=== PATIENT | male | born 1995 | race Caucasian/White ===

== ENCOUNTER 2024-03-11 15:20 | Inpatient (IN) ==
--- NOTE | 2024-03-11 15:49 | Emergency Department Note ---
Impression & Plan Acute hypoxic respiratory failure, Strep pharyngitis, Enterovirus infection, Hypokalemia, Metabolic acidosis ED Provider Note NAME: JODI STACY AGE: 28 SEX: M : 1995 ARRIVES VIA: Ambulance INFORMANT: Patient, ED PROVIDER(S): Earle Yoon DO CHIEF COMPLAINT: Shortness of breath HPI: Patient is a 27-year-old male who presents ER for upper respiratory symptoms that have been present for the past week. He admits to cough, runny nose and a sore throat. Denies any recorded fevers. He was seen here earlier and was positive for strep and rhinovirus. He presents back via EMS for shortness of breath. Denies any belly pain, nausea, vomiting, or diarrhea. No dysuria, urgency, or frequency. He feels short of breath with any exertion. He was placed on 4 L nasal cannula due to a pulse ox of 86% per EMS. ADDITIONAL HISTORY OBTAINED: Additional history obtained from EMS as described above Chronic Medical/Social Conditions Affecting Care: Per HPI PAST MEDICAL HISTORY:See Below PAST SURGICAL HISTORY:See Below FAMILY HISTORY:See Below SOCIAL HISTORY:See Below HOME MEDICATIONS:See Below ALLERGIES:See Below VITALS:See Below PHYSICAL EXAMINATION: GENERAL: Sitting up in bed, alert, well appearing, well nourished, no distress, non-toxic, on nasal cannula with a persistent cough EYE EXAM: normal conjunctiva. PERRL and EOM's grossly intact. OROPHARYNX: no exudate, no erythema, lips, buccal mucosa, and tongue normal and mucous membranes are moist NECK: supple, no nuchal rigidity, no adenopathy, non-tender LUNGS: Faint wheezing bilaterally. Normal chest wall mechanics HEART: no murmurs, S1 normal and S2 normal ABDOMEN: abdomen soft, non-tender, normo-active bowel sounds, no masses, no rebound or guarding. UPPER EXTREMITIES: upper extremities are grossly normal. LOWER EXTREMITIES: No pitting edema. Calves are equal bilaterally NEURO EXAM: Normal sensorium, cranial nerves II-XII grossly intact, normal speech, no gross weakness of arms, no gross weakness of legs. No drift. Finger to nose intact. Gross sensation intact. MEDICAL DECISION MAKING: Patient is a 28-year-old male who presents ER for the above-stated complaint. He was seen here earlier today and diagnosed with rhinovirus/enterovirus as well as strep. Upon arrival he was brought back in by EMS for worsening shortness of breath. Labs show leukocytosis of 12,000. No significant anemia. He is found to be hypoxic for EMS at 87%. Here he was 87 to 8088% on room air. ABG with a pH of 7.29. Hypokalemia at 3.3. LFTs bilirubin and lipase was unremarkable. Chest x-ray was unremarkable. CT of the chest showed bronchial wall thickening and lymph nodes. He was given neb treatments as well as steroids as he had some faint wheezing. He was updated bedside discussed with case with the hospitalist for further evaluation management treatment. Consults/Care Managements Discussions: Per [facility] Triage Nursing notes reviewed. [Limited review of prior medical records performed] Vital Signs: reviewed and remarkable for 87% on room air/hypoxic Differential diagnosis: Differential diagnoses includes but is not limited to pneumonia, bronchitis, COPD/Asthma exacerbation, pneumothorax, pulmonary embolism, congestive heart failure, acute coronary syndrome ER treatment provided: See below Diagnostics interpreted by me include EKG and cardiac monitoring as listed below: -Cardiac Monitoring: An order was placed for continuous cardiac monitoring. The monitor shows a rate of 101 with sinus rhythm. -ECG: Sinus rhythm rate of 92 Normal axis T wave inversion in the inferior leads QTc 450 -Laboratory studies:Interpreted by me as stated above in MDM and shown below. Imaging studies: Xrays: As interpreted by me:none CTs show: CT of the chest per my preliminary interpretation showed no obvious focal pneumonia CT a of the chest per radiology was negative Procedures:none Critical Care: I have personally spent 35 minutes of critical care time in the direct management of this patient. This includes bedside care, interpretation of diagnostic studies, and testing, discussion with consultants, patient, and family members, and other required patient management activities. This 35 minutes is in excess of all separately billable procedures. Past Med/Surg History Problem List (Updated 03/11/24 @ 21:10 by Earle Yoon DO) Metabolic acidosis (Acute) Esophagitis Hypokalemia (Acute) Enterovirus infection (Acute) Acute hypoxic respiratory failure (Acute) URI (upper respiratory infection) (Acute) Strep pharyngitis (Acute) Dermatitis Encounter for vasectomy assessment Medical History Diarrhea Family History Mother COPD (chronic obstructive pulmonary disease) Diabetes Hypertension Social History Smoking Status: Never smoker Preferred Language: Welsh Feels Safe at Home: Yes Allergies Allergies Allergy/AdvReac Type Severity Reaction Status Date / Time No Known Allergies Allergy Verified 03/11/24 16:25 Home Meds Previous Rx's Medication Instructions Recorded amoxicillin 875 mg-potassium 1 tab PO BID 10 days #20 tabs 03/11/24 clavulanate 125 mg tablet benzonatate 100 mg capsule 100 mg PO TID PRN cough #30 caps 03/11/24 Results & Data (ED) Vital Signs Vital Signs - 24 hr 03/11/24 15:32 03/11/24 15:48 03/11/24 15:55 Temperature 36.7 C Temperature Source Temporal Artery Scan Pulse Rate 85 99 H Pulse Rate [Apical] Pulse Rhythm Regular Pulse Rhythm [Apical] Pulse Strength [Apical] Respiratory Rate 18 Respiratory Effort / Characteristics Non-Labored Spontaneous Respiratory Depth Normal Respiratory Pattern Blood Pressure 131/79 Blood Pressure [Right Arm] Blood Pressure Mean 96 Blood Pressure Mean [Right Arm] Blood Pressure Position Sitting Pulse Oximetry 96 95 Oxygen Delivery Method Nasal Cannula Nasal Cannula Oxygen Flow Rate 4 5 Sepsis Recent Fever Within 48 Hours No Sepsis New/Unexplained Change in Mental Status No Sepsis Action Taken by Nursing No Action Required Oxygen Flow Rate - Titration Pulse Oximetry Post Tiitration 03/11/24 16:00 03/11/24 16:10 03/11/24 18:48 Temperature Temperature Source Pulse Rate Pulse Rate [Apical] 89 98 H Pulse Rhythm Pulse Rhythm [Apical] Regular Pulse Strength [Apical] Normal Normal Respiratory Rate 19 19 Respiratory Effort / Characteristics SOB on Exertion Non-Labored Spontaneous Respiratory Depth Normal Normal Respiratory Pattern Regular Regular Blood Pressure Blood Pressure [Right Arm] 145/80 H 142/92 H Blood Pressure Mean Blood Pressure Mean [Right Arm] 101 108 Blood Pressure Position Pulse Oximetry 88 L 95 95 Oxygen Delivery Method Room Air Nasal Cannula Nasal Cannula Oxygen Flow Rate 4 3 Sepsis Recent Fever Within 48 Hours Sepsis New/Unexplained Change in Mental Status Sepsis Action Taken by Nursing Oxygen Flow Rate - Titration 4 Pulse Oximetry Post Tiitration 95 03/11/24 19:39 03/11/24 20:45 Temperature Temperature Source Pulse Rate 107 H Pulse Rate [Apical] 105 H Pulse Rhythm Pulse Rhythm [Apical] Pulse Strength [Apical] Respiratory Rate 19 Respiratory Effort / Characteristics SOB on Exertion Respiratory Depth Normal Respiratory Pattern Regular Blood Pressure Blood Pressure [Right Arm] 118/73 Blood Pressure Mean Blood Pressure Mean [Right Arm] 88 Blood Pressure Position Pulse Oximetry 94 Oxygen Delivery Method Nasal Cannula Oxygen Flow Rate 3 Sepsis Recent Fever Within 48 Hours Sepsis New/Unexplained Change in Mental Status Sepsis Action Taken by Nursing Oxygen Flow Rate - Titration Pulse Oximetry Post Tiitration Laboratory Data 03/11/24 15:51 03/11/24 15:51 Lab Results 03/11/24 03/11/24 Range/Units 15:51 17:25 WBC 12.00 H (4.8-10.8) K/ul RBC 5.22 (4.70-6.10) M/uL Hgb 14.6 (14.0-18.0) g/dl Hct 41.6 L (42.0-52.0) % MCV 79.7 L (80.0-100.0) fL MCH 28.0 (25.0-34.0) pg MCHC 35.1 (32.0-36.0) g/dL RDW Std Deviation 35.7 L (36.4-46.3) fL RDW Coeff of Nicko 12.5 (11.5-14.5) % Plt Count 224 (130-400) K/uL MPV 9.6 (9.4-12.4) fL Immature Gran % (Auto) 0.8 % Neut % (Auto) 64.7 % Lymph % (Auto) 13.4 % [place] % (Auto) 5.7 % Eos % (Auto) 14.5 % Baso % (Auto) 0.9 % Neut # (Auto) 7.77 H (1.40-6.50) K/uL Lymph # (Auto) 1.61 (1.20-3.40) K/uL [place] # (Auto) 0.68 H (0.11-0.59) K/uL Eos # (Auto) 1.74 H (0.00-0.50) K/uL Baso # (Auto) 0.11 (0.00-0.20) K/uL Immature Gran # (Auto) 0.09 (0.01-0.20) K/uL VBG pH 7.29 L (7.36-7.41) VBG pCO2 49 (38-50) mmHg VBG pO2 31 mmHg VBG HCO3 24 mmol/L VBG O2 Saturation < 60.0 % VBG Base Excess -3.4 mEq/L Sodium 138 (136-145) mmol/L Potassium 3.3 L (3.5-5.1) mmol/L Chloride 106 (98-107) mmol/L Carbon Dioxide 27 (21-32) mmol/L Anion Gap 5 (3-11) BUN 16 (6-23) mg/dl Creatinine 1.01 (0.6-1.4) mg/dl Est Cr Clr Drug Dosing 140.7 ml/min Est GFR ( Amer) 116.0 ml/min Est GFR (Non-Af Amer) 100.0 ml/min BUN/Creatinine Ratio 15.8 (10-20) Glucose 126 H (70-99(Fasting)) mg/dl Calcium 8.8 (8.6-10.3) mg/dl Total Bilirubin 0.3 (0.2-1.0) mg/dl AST 14 (13-39) U/L ALT 16 (7-52) U/L Alkaline Phosphatase 76 (34-104) U/L Troponin I High Sens 3.0 (0-20) pg/ml Total Protein 7.1 (6.0-8.3) gm/dl Albumin 4.2 (3.4-5.0) gm/dl Globulin 2.9 (2.5-4.0) gm/dl Albumin/Globulin Ratio 1.4 (0.9-2) Lipase 11 (11-82) U/L Administered Medications Discontinued Medications Albuterol (Albuterol 0.083% Nebu Soln 3 Ml Vial) 2.5 mg NEB NOW STA; Protocol Stop: 03/11/24 16:22 Last Admin: 03/11/24 16:27 Dose: 2.5 mg Documented By: GGG Albuterol (Albuterol 0.083% Nebu Soln 3 Ml Vial) 2.5 mg NEB NOW STA; Protocol Stop: 03/11/24 17:03 Last Admin: 03/11/24 17:05 Dose: 2.5 mg Documented By: ALEXYS Sodium Chloride (Nss) 1,000 mls @ 999 mls/hr IV .Q1H1M [place] Stop: 03/11/24 17:45 Last Infusion: 03/11/24 18:45 Dose: Infused Documented By: Admin: 03/11/24 16:50 Dose: 999 mls/hr Documented By: Infusion: 03/11/24 16:50 Dose: Infused Documented By: Admin: 03/11/24 16:13 Dose: 999 mls/hr Documented By: ALEXYS Ioversol (Optiray 320 125ml) 118 ml IV ONCE ONE Stop: 03/11/24 16:03 Last Admin: 03/11/24 16:02 Dose: 118 ml Documented By: FRANCO Methylprednisolone (Methylprednisolone 125 Mg/2 Ml Vial) 40 mg IV NOW STA Stop: 03/11/24 17:03 Last Admin: 03/11/24 17:05 Dose: 40 mg Documented By: ALEXYS Potassium Chloride (Potassium Chloride Crtab 20 Meq Tabcr) 20 meq PO NOW STA Stop: 03/11/24 19:22 Last Admin: 03/11/24 19:27 Dose: 20 meq Documented By: ALEXYS Imaging Data Radiologist's Impression: Chest CTA 03/11/24 15:41 CT ANGIOGRAPHY OF THE CHEST, PULMONARY EMBOLUS PROTOCOL CLINICAL HISTORY: Shortness of breath and cough. COMPARISON STUDY: Chest radiograph performed earlier today. TECHNIQUE: Following IV administration of 118 mL of Optiray, helical axial images of the chest were obtained utilizing the pulmonary embolus protocol. Maximal intensity projections and sagittal and coronal reformats were viewed on an independent 3D workstation. IV contrast was administered without complication. Automated exposure control was utilized for the study. A dose lowering technique was utilized adhering to the principles of ALARA. CT DOSE: 846.76 mGy.cm FINDINGS: No pulmonary emboli are identified. There is no thoracic aortic dissection. The size of the heart is normal. There is no pericardial effusion. There are several mildly enlarged mediastinal and bilateral hilar lymph nodes. Index right hilar node on image 107 of 270 measures 1.6 x 1.2 cm. No pneumothorax or pleural effusion is present. No consolidation is identified. Mild distal esophageal wall thickening is noted. There is diffuse bronchial wall thickening with scattered secretions within the airways. Bronchial wall thickening is greatest within the lower lobes. No central obstructing mass is identified. There are no acute fractures within the bony structures. Visualized portions of the upper abdomen are unremarkable. IMPRESSION: 1. No pulmonary emboli identified. 2. Diffuse bronchial wall thickening with scattered airway secretions. The findings suggest an infectious process, likely viral. No consolidation. 3. Mild distal esophageal wall thickening. This may be due to underdistention however esophagitis could appear similar. 4. Mildly enlarged mediastinal and bilateral hilar lymph nodes which are likely reactive. ACT 112: Negative or not required by law. Electronically signed by: Malcolm Oliveros M.D. 03/11/2024 4:20 PM Discharge Plan Visit Data Chief Complaint: Shortness of Breath/Dyspnea Stated Complaint: SOB ED Provider: Earle Yoon Discharge Problem: Acute hypoxic respiratory failure, Strep pharyngitis, Enterovirus infection, Hypokalemia, Metabolic acidosis Patient Disposition: Admitted As Inpatient Discharge Instructions Interventions: ED Discharge Assessment Last Done: 03/11/24 20:44 Forms Stand Alone Forms: [facility] Prescriptions Prescriptions: No Action benzonatate 100 mg capsule 100 mg PO TID PRN (Reason: cough) Qty: 30 0RF amoxicillin-pot clavulanate 875-125 mg tablet 1 tab PO BID 10 Days Qty: 20 0RF Referrals Referrals: Shaw Bernard [Primary Care Provider] -
[2024-03-11] MEDS: OPTIRAY 320 125ml IV ONE (16:02)
[2024-03-11] MEDS: SODIUM CHLORIDE 0.9% 1,000 ML IV SCH (16:13)
[2024-03-11 16:19] LABS: Basophils # (auto) 0.11 K/uL (0.00-0.20); Basophils % (auto) 0.9 %; Eosinophils # (auto) 1.74 K/uL (0.00-0.50); Eosinophils % (auto) 14.5 %; Hematocrit (blood only) 41.6 % (42.0-52.0); Hemoglobin 14.6 g/dl (14.0-18.0); Immature Granulocytes # (auto) 0.09 K/uL (0.01-0.20); Immature Granulocytes % (auto) 0.8 %; Lymphocytes # (auto) 1.61 K/uL (1.20-3.40); Lymphocytes % (auto) 13.4 %; Mean Corpuscular Hgb Conc 35.1 g/dL (32.0-36.0); Mean Corpuscular Volume 79.7 fL (80.0-100.0); Mean Platelet Volume 9.6 fL (9.4-12.4); Monocytes # (auto) 0.68 K/uL (0.11-0.59); Monocytes % (auto) 5.7 %; Neutrophils # (auto) 7.77 K/uL (1.40-6.50); Neutrophils % (auto) 64.7 %; Platelet Count 224 K/uL (130-400); RDW Coefficient of Variation 12.5 % (11.5-14.5); RDW Standard Deviation 35.7 fL (36.4-46.3); Red Blood Count 5.22 M/uL (4.70-6.10)
--- NOTE | 2024-03-11 16:22 | CT Scan Report ---
CT ANGIOGRAPHY OF THE CHEST, PULMONARY EMBOLUS PROTOCOL CLINICAL HISTORY: Shortness of breath and cough. COMPARISON STUDY: Chest radiograph performed earlier today. TECHNIQUE: Following IV administration of 118 mL of Optiray, helical axial images of the chest were o btained utilizing the pulmonary embolus protocol. Maximal intensity projections and sagittal and cor onal reformats were viewed on an independent 3D workstation. IV contrast was administered without co mplication. Automated exposure control was utilized for the study. A dose lowering technique was ut ilized adhering to the principles of ALARA. CT DOSE: 846.76 mGy.cm FINDINGS: No pulmonary emboli are identified. There is no thoracic aortic dissection. The size of th e heart is normal. There is no pericardial effusion. There are several mildly enlarged mediastinal an d bilateral hilar lymph nodes. Index right hilar node on image 107 of 270 measures 1.6 x 1.2 cm. No p neumothorax or pleural effusion is present. No consolidation is identified. Mild distal esophageal wa ll thickening is noted. There is diffuse bronchial wall thickening with scattered secretions within t he airways. Bronchial wall thickening is greatest within the lower lobes. No central obstructing mass is identified. There are no acute fractures within the bony structures. Visualized portions of the u pper abdomen are unremarkable. IMPRESSION: 1. No pulmonary emboli identified. 2. Diffuse bronchial wall thickening with scattered airway secretions. The findings suggest an infect ious process, likely viral. No consolidation. 3. Mild distal esophageal wall thickening. This may be due to underdistention however esophagitis cou ld appear similar. 4. Mildly enlarged mediastinal and bilateral hilar lymph nodes which are likely reactive. ACT 112: Negative or not required by law. Electronically signed by: Malcolm Oliveros M.D. 03/11/2024 4:20 PM
[2024-03-11] MEDS: ALBUTEROL 0.083% NEBU SOLN 3 ML VIAL NEB STA ×2 (16:27→17:05)
[2024-03-11 16:31] LABS: Albumin Globulin Ratio 1.4 (0.9-2); Albumin Level 4.2 gm/dl (3.4-5.0); BUN Creatinine Ratio 15.8 (10-20); Bilirubin,Total 0.3 mg/dl (0.2-1.0); Calcium 8.8 mg/dl (8.6-10.3); Creatinine Clr Calc Pharmacy 140.7 ml/min; Globulin 2.9 gm/dl (2.5-4.0); Potassium 3.3 mmol/L (3.5-5.1); Total Protein 7.1 gm/dl (6.0-8.3)
[2024-03-11] MEDS: methylPREDNISolone 125 MG/2 ML VIAL IV STA (17:05)
[2024-03-11 17:31] LABS: Base Excess VBG -3.4 mEq/L; HCO3 VBG 24 mmol/L; Oxygen Saturation VBG < 60.0 %; PCO2 VBG 49 mmHg (38-50); PO2 VBG 31 mmHg; pH VBG 7.29 (7.36-7.41)
--- NOTE | 2024-03-11 17:41 | Electrocardiogram Report ---
Test Reason : Blood Pressure : / mmHG Vent. Rate : 092 BPM Atrial Rate : 092 BPM P-R Int : 162 ms QRS Dur : 088 ms QT Int : 364 ms P-R-T Axes : 006 065 004 degrees QTc Int : 450 ms Normal sinus rhythm Nonspecific T wave abnormality Inferior leads Nonspecific T wave abnormality Anterior leads Abnormal ECG No previous ECGs available Confirmed by Bernabe Patel ([id number]) on 03/11/2024 5:40:54 PM Referred By: Confirmed By:Bernabe Patel
--- NOTE | 2024-03-11 19:26 | History & Physical Report ---
Date of Service March 11, 2024 Assessment & Plan (1) Acute hypoxic respiratory failure: (2) Strep pharyngitis: (3) Enterovirus infection: (4) Hypokalemia: (5) Esophagitis: Plan Pt is a 28yoM with PMHx significant for past tobacco use admitted with acute hypoxic respiratory failure. 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 Biofire positive for Entero/Rhinovirus infection Pt also positive for strep VBG noting acidosis but otherwise unremarkable Chest CTA suggestive of an infectious/bronchitis process but no noted PE Continue with IV Unasyn (will treat strep infection as well) Received dose of IV Solumedrol 40mg in the ED, continue daily Continue with scheduled duonebs Scheduled mucinex, Breo, Incruse inhalers PRN Hycodan Oxygen supplementation, wean as tolerated pulmonology consulted, appreciate recs Continue to monitor Hypokalemia K of 3.3 Replete as needed Esophagitis Suggested on CTA chest Started on daily ppi PCP followup Diet: Regular DVT prophylaxis: SCDs, ambulation as tolerated Dispo: Med/Surg with tele History of Present Illness Chief Complaint: Cough Primary Care Provider: Shaw Bernard Pt is a 28yoM with PMHx significant for past tobacco use admitted with acute hypoxic respiratory failure. States that he has been coughing for the past week, coughing fits that keep him up at night. No noted fevers. has been urging him to take OTC meds to help. Notes he took theraflu probably once during this time. Coughing progressed and came in today to be evaluated. Was evaluated in the ED where it was noted that he had a strep and viral infection and discharged home. However, he notes he went home, took the prescribed meds and laid down. States at that point felt like something was on his chest and he had significant difficulty breathing. EMS was called and it was noted that he was hypoxic in the 80s. He was placed on oxygen requiring 5L. He states that he smoked tobacco for about 10 years, 1ppd before quitting about a year ago. 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 Denies vaping Hx or smoking anything other than tobacco. Allergies Allergy/AdvReac Type Severity Reaction Status Date / Time No Known Allergies Allergy Verified 03/11/24 16:25 Home Medications Medication Instructions Recorded Confirmed Type amoxicillin 875 mg-potassium 1 tab PO BID 10 days #20 tabs 03/11/24 03/11/24 Rx clavulanate 125 mg tablet benzonatate 100 mg capsule 100 mg PO TID PRN cough #30 caps 03/11/24 03/11/24 Rx Past Med/Surg History Problem List (Updated 03/11/24 @ 20:01 by An Hill MD) Esophagitis Hypokalemia Enterovirus infection Acute hypoxic respiratory failure URI (upper respiratory infection) (Acute) Strep pharyngitis (Acute) Dermatitis Encounter for vasectomy assessment Medical History Diarrhea Family History Mother COPD (chronic obstructive pulmonary disease) Diabetes Hypertension Social History Smoking Status: Never smoker Preferred Language: Zimbabwean Feels Safe at Home: Yes Review of Systems Review of Systems: All systems reviewed & are unremarkable except as noted in Subjective Physical Exam Physical Exam: General: Alert, oriented. some mild distress Skin: No noted rashes or bruises Psych: Appropriate mood and affect Neuro: No gross deficits HEENT: NC/AT Chest: Nontender to palpation. CV: RRR Resp: Breath sounds with wheezing bilaterally Abdomen: Soft, nontender, nondistended Extremities: No edema in lower extremities bilaterally. Results & Data Results & Data Vital Signs (Past 12 Hours) Vital Signs Temp Pulse Pulse Resp BP BP Pulse Ox 03/11/24 16:10 89 19 145/80 H 95 03/11/24 16:00 88 L 03/11/24 15:55 95 03/11/24 15:48 99 H 03/11/24 15:32 36.7 C 85 18 131/79 96 O2 Del Method O2 Flow Rate 03/11/24 16:10 Nasal Cannula 4 03/11/24 16:00 Room Air 03/11/24 15:55 Nasal Cannula 5 03/11/24 15:48 03/11/24 15:32 Nasal Cannula 4 Diagnostic Findings Chest CTA 03/11/24 15:41 CT ANGIOGRAPHY OF THE CHEST, PULMONARY EMBOLUS PROTOCOL CLINICAL HISTORY: Shortness of breath and cough. COMPARISON STUDY: Chest radiograph performed earlier today. TECHNIQUE: Following IV administration of 118 mL of Optiray, helical axial images of the chest were obtained utilizing the pulmonary embolus protocol. Maximal intensity projections and sagittal and coronal reformats were viewed on an independent 3D workstation. IV contrast was administered without complication. Automated exposure control was utilized for the study. A dose lowering technique was utilized adhering to the principles of ALARA. CT DOSE: 846.76 mGy.cm FINDINGS: No pulmonary emboli are identified. There is no thoracic aortic dissection. The size of the heart is normal. There is no pericardial effusion. There are several mildly enlarged mediastinal and bilateral hilar lymph nodes. Index right hilar node on image 107 of 270 measures 1.6 x 1.2 cm. No pneumothorax or pleural effusion is present. No consolidation is identified. Mild distal esophageal wall thickening is noted. There is diffuse bronchial wall thickening with scattered secretions within the airways. Bronchial wall thickening is greatest within the lower lobes. No central obstructing mass is identified. There are no acute fractures within the bony structures. Visualized portions of the upper abdomen are unremarkable. IMPRESSION: 1. No pulmonary emboli identified. 2. Diffuse bronchial wall thickening with scattered airway secretions. The findings suggest an infectious process, likely viral. No consolidation. 3. Mild distal esophageal wall thickening. This may be due to underdistention however esophagitis could appear similar. 4. Mildly enlarged mediastinal and bilateral hilar lymph nodes which are likely reactive. ACT 112: Negative or not required by law. Electronically signed by: Malcolm Oliveros M.D. 03/11/2024 4:20 PM
[2024-03-11] MEDS: POTASSIUM CHLORIDE CRTAB 20 MEQ TABCR PO STA (19:27)
[2024-03-11] MEDS: HYDROcodone/HOMATROPINE SYRUP 5MG/1.5MG 5ML UDP PO PRN (22:30)
[2024-03-11] MEDS: AMPICILLIN/SULBACTAM SOD 3,000 MG in SODIUM CHLOR 0.9% MINI-B 100 ML IV SCH (22:31)
[2024-03-11] MEDS: PANTOprazole 40 MG TAB PO SCH (22:31)
[2024-03-11] MEDS: guaiFENesin 600 MG TABCR PO SCH (22:31)
[2024-03-11] MEDS: FLUTICASONE/VILANTEROL 200/25MCG 14 PUFFS/INHALER INH SCH (22:32)
[2024-03-11] MEDS: UMECLIDINIUM BROMIDE 62.5MCG/BLISTER 7 PUFFS/INHALER INH SCH (22:32)
[2024-03-11] MEDS: ALBUT/IPRATROP 3MG/0.5MG NEB 3 ML VIAL NEB PRN (22:41)
[2024-03-12] MEDS: BENZONATATE 100 MG CAPSULE PO PRN (03:22)
[2024-03-12] MEDS: ACETAMINOPHEN 325 MG TAB PO PRN (03:22)
[2024-03-12] MEDS: SODIUM CHLORIDE 0.9% 1,000 ML IV SCH (05:34)
[2024-03-12 07:43] LABS: Basophils # (auto) 0.07 K/uL (0.00-0.20); Basophils % (auto) 0.7 %; Eosinophils # (auto) 0.02 K/uL (0.00-0.50); Eosinophils % (auto) 0.2 %; Hematocrit (blood only) 40.4 % (42.0-52.0); Hemoglobin 14.3 g/dl (14.0-18.0); Lymphocytes # (auto) 0.46 K/uL (1.20-3.40); Lymphocytes % (auto) 4.6 %; Mean Corpuscular Hemoglobin 28.2 pg (25.0-34.0); Mean Corpuscular Hgb Conc 35.4 g/dL (32.0-36.0); Mean Corpuscular Volume 79.7 fL (80.0-100.0); Mean Platelet Volume 9.8 fL (9.4-12.4); Monocytes # (auto) 0.85 K/uL (0.11-0.59); Monocytes % (auto) 8.6 %; Neutrophils % (auto) 84.9 %; Platelet Count 228 K/uL (130-400); RDW Coefficient of Variation 12.9 % (11.5-14.5); RDW Standard Deviation 36.4 fL (36.4-46.3); Red Blood Count 5.07 M/uL (4.70-6.10)
[2024-03-12] MEDS: methylPREDNISolone 40 MG in SYRINGE 0 ML IV SCH (08:09)
[2024-03-12 08:12] LABS: Albumin Globulin Ratio 1.4 (0.9-2); Albumin Level 4.2 gm/dl (3.4-5.0); BUN Creatinine Ratio 12.2 (10-20); Bilirubin,Total 0.6 mg/dl (0.2-1.0); Calcium 8.9 mg/dl (8.6-10.3); Creatinine Clr Calc Pharmacy 153.1 ml/min; Est GFR (African American) 133.3 ml/min; Globulin 2.9 gm/dl (2.5-4.0); Magnesium 1.7 mg/dl (1.7-2.4); Phosphorus 4.7 mg/dl (2.5-4.9); Total Protein 7.1 gm/dl (6.0-8.3)
--- NOTE | 2024-03-12 10:43 | Pulmonary Consultation ---
Date of Consultation March 12, 2024 Assessment & Plan (1) Acute viral bronchiolitis: Patient with acute viral bronchiolitis likely related to enterovirus. Possible superimposed bacterial infection. Group A strep noted on respiratory viral panel. Unasyn discontinued. Will start ceftriaxone and azithromycin. Transition from IV methylprednisone to prednisone 40 mg daily. Discontinue Breo and Incruse. Will start nebulized budesonide and nebulized formoterol. Will also add hypertonic saline, flutter valve and incentive spirometry to promote mucociliary clearance. Procalcitonin sent. May benefit from outpatient PFTs. Noted significant peripheral eosinophilia on admission of 1740. Possible Th2 mediated asthma. Would benefit from RAST panel and IgE level. Orders placed. (2) Acute hypoxic respiratory failure: Hypoxemia improving. Patient currently off oxygen. (3) Current every day vaping: Patient notes he quit vaping about 7 days ago. He also has a 10-year history of tobacco abuse with cigarette smoking. Encouraged complete cessation of vaping and cigarette smoking and congratulated him on quitting vaping. (4) Peripheral eosinophilia: Possibly Th2 mediated asthma as noted above. Will need outpatient workup with PFTs. RAST and IgE panel ordered this admission. Nebulized budesonide and formoterol initiated. (5) Abnormal CT scan, chest: Patient with hilar and mediastinal adenopathy likely reactive to viral infection. Also bronchial wall thickening and secretions noted in the airways. Recommend repeat CT chest in 3-4 months to ensure resolution. Plan Thank you for the consult. Pulmonary to follow with you. History of Present Illness Reason for Consultation: Viral bronchiolitis Attending Physician: An Hill MD History of Present Illness 28-year-old male with a history of tobacco abuse and vaping. He notes he quit vaping about a week ago and he smoked tobacco for about 10 years. He was in the ER the day before and was discharged home as he did not want to be admitted. He came back soon after via EMS due to severe shortness of breath and has been placed on steroids and antibiotics. He has been having significant cough occasionally with some mild hemoptysis. He was on supplemental oxygen yesterday and has been weaned off. He notes that he has poor sleep due to severe cough and shortness of breath. His symptoms have very mildly improved, but overall he still feels unwell. He notes that he moved about 1 month ago, but his symptoms seem to predate even his move. He he has 1 dog at home. He is concerned about his employment and is asking about FMLA forms. He is currently on methylprednisone 40 mg daily, Breo and Incruse Ellipta. He is also on Unasyn. Chest CTA revealed diffuse bronchial wall thickening with scattered secretions. Distal esophageal thickening and mild mediastinal and bilateral hilar lymphadenopathy. Respiratory viral panel was positive for group A strep and enterovirus. Allergies Allergy/AdvReac Type Severity Reaction Status Date / Time No Known Allergies Allergy Verified 03/11/24 16:25 Home Medications Medication Instructions Recorded Confirmed Type amoxicillin 875 mg-potassium 1 tab PO BID 10 days #20 tabs 03/11/24 03/11/24 Rx clavulanate 125 mg tablet benzonatate 100 mg capsule 100 mg PO TID PRN cough #30 caps 03/11/24 03/11/24 Rx Patient History Medical History Diarrhea Family History Mother COPD (chronic obstructive pulmonary disease) Diabetes Hypertension Social History Smoking Status: Former smoker Tobacco Type: E-cigarettes / Vaping Smoking End Date: stopped vaping one week ago, stopped cigarettes 1 yr ago; Second Hand Exposure: No; Hx Alcohol Use: Yes Hx Substance Use: No Preferred Language: Bol[place]ian Communication Ability: Effective Medical Screener Required: No Beliefs That Will Affect Care: None Current Living Situation: Spouse and Family Feels Safe at Home: Yes Safety Concerns: Feels Safe At This Time Review of Systems Review of Systems: All systems reviewed & are unremarkable except as noted in HPI & below Physical Exam Physical Exam: Constitutional: Patient appears to be of their stated age. Patient appears disheveled. Coughing frequently Eyes: Pupils are equal round and reactive to light. Conjunctivae are normal. Anicteric sclera. Ears nose, mouth and throat: No perioral cyanosis. Neck: Trachea is midline. Visual inspection is normal. Respiratory: Bilateral wheezing and rhonchi. No tachypnea. No increased work of breathing. Cardiovascular: Regular rate and rhythm. No murmurs. No edema. Gastrointestinal: Normal bowel sounds, soft, nontender and nondistended. No hepatosplenomegaly noted. Musculoskeletal: No cyanosis. Patient is able to move all extremities. Strength is 5 out of 5 in the upper and lower extremities. Skin: No rashes, warm dry and intact. Neurologic: No obvious focal neurological deficits seen. Psychiatric: Alert and oriented x3 with a euthymic affect. Results & Data Results & Data Vital Signs (Past 12 Hours) Vital Signs Temp Pulse Pulse Pulse Resp BP Pulse Ox 03/12/24 08:08 94 03/12/24 08:00 03/12/24 07:43 37.2 C 100 H 16 136/72 94 03/12/24 07:00 99 H 03/12/24 05:05 03/12/24 04:51 37.7 C H 03/12/24 03:13 38.3 C H 118 H 22 127/69 97 O2 Del Method O2 Flow Rate 03/12/24 08:08 Room Air 03/12/24 08:00 Room Air 03/12/24 07:43 Nasal Cannula 2 03/12/24 07:00 03/12/24 05:05 Nasal Cannula 2 03/12/24 04:51 03/12/24 03:13 Nasal Cannula 3 PG Care Time/CCT Total # of Minutes Spent Total Time Spent with Patient: Total time spent is greater than 50% in coordination of care (as documented) at patient's floor/unit and/or counseling patient: Coding Level of Care Code 24956 IN/OBS CONSULT LVL 5,80M Diagnoses Acute viral bronchiolitis J21.8; B97.89 Acute hypoxic respiratory failure J96.01 Current every day vaping Z72.89 Peripheral eosinophilia D72.[address] scan, chest R93.89
[2024-03-12] MEDS: cefTRIAXone SODIUM 2,000 MG/50 ML BAG IV SCH (11:29)
[2024-03-12] MEDS: AZITHROMYCIN 500 MG in DEXTROSE 5% 250 ML IV STA (12:14)
--- NOTE | 2024-03-12 14:48 | Hospitalist Progress Note ---
Date of Service March 12, 2024 Assessment & Plan (1) Acute hypoxic respiratory failure: (2) Strep pharyngitis: (3) Enterovirus infection: (4) Hypokalemia: (5) Esophagitis: Plan Pt is a 28yoM with PMHx significant for past tobacco use admitted with acute hypoxic respiratory failure. 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 Biofire positive for Entero/Rhinovirus infection Pt also positive for strep VBG noting acidosis but otherwise unremarkable Chest CTA suggestive of an infectious/bronchitis process but no noted PE Initially treated with IV Unasyn (will treat strep infection as well) and IV solumedrol IV Solumedrol 40mg in the ED, scheduled duoneb, scheduled mucinex, Breo, Incruse inhalers PRN Hycodan for cough Oxygen supplementation, wean as tolerated pulmonology was consulted, appreciate recs -symptoms likely in setting of acute viral bronchiolitis likely related to enterovirus -Possible superimposed bacterial infection, positive for strep. -Unasyn switched to ceftriaxone and azithromycin. -IV methylprednisone switched to prednisone 40 mg daily. -Discontinue Breo and Incruse. -start nebulized budesonide and nebulized formoterol -hypertonic saline, flutter valve and incentive spirometry to promote mucociliary clearance -May benefit from outpatient PFTs, significant peripheral eosinophilia on admission of 1740, possible Th2 mediated asthma, RAST panel and IgE levels pending -Encourage complete cessation of vaping and cigarette smoking -Patient with hilar and mediastinal adenopathy likely reactive to viral infection. Also bronchial wall thickening and secretions noted in the airways. -Recommend repeat CT chest in 3-4 months to ensure resolution. Hypokalemia K of 3.3 Replete as needed Esophagitis Suggested on CTA chest Started on daily ppi PCP followup Diet: Regular DVT prophylaxis: SCDs, ambulation as tolerated Dispo: Med/Surg with tele Admission and Anticipated Discharge Date Admission Date: March 11, 2024 Subjective Initially notified that pt wanted to be discharged On rounds, pt stated he was having FMLA taken care of as we speak, agreeable to staying. Noted that he was able to breather without oxygen. Coughing improving though he notes pulm wants him to cough Asking for phone vocal music instructor. Review of Systems Review of Systems: All systems reviewed & are unremarkable except as noted in Subjective Physical Exam Physical Exam: General: Alert, oriented. some mild distress Skin: No noted rashes or bruises Psych: Appropriate mood and affect Neuro: No gross deficits HEENT: NC/AT Chest: Nontender to palpation. CV: RRR Resp: Breath sounds with coarseness and wheezing bilaterally Abdomen: Soft, nontender, nondistended Extremities: No edema in lower extremities bilaterally. Results & Data Results & Data Vital Signs (Past 12 Hours) Vital Signs Temp Pulse Pulse Pulse Resp BP Pulse Ox 03/12/24 12:20 37.0 C 104 H 16 132/66 91 03/12/24 08:08 94 03/12/24 08:00 03/12/24 07:43 37.2 C 100 H 16 136/72 94 03/12/24 07:00 99 H 03/12/24 05:05 03/12/24 04:51 37.7 C H 03/12/24 03:13 38.3 C H 118 H 22 127/69 97 O2 Del Method O2 Flow Rate 03/12/24 12:20 Room Air 03/12/24 08:08 Room Air 03/12/24 08:00 Room Air 03/12/24 07:43 Nasal Cannula 2 03/12/24 07:00 03/12/24 05:05 Nasal Cannula 2 03/12/24 04:51 03/12/24 03:13 Nasal Cannula 3
[2024-03-12] MEDS: FORMOTEROL 20 MCG/2 ML VIAL NEB SCH (19:28)
[2024-03-12] MEDS: SODIUM CHLOR 7% 4 ML NEB NEB SCH (19:28)
[2024-03-12] MEDS: BUDESONIDE 0.5 MG/2 ML VIAL (PULMICORT) NEB SCH (19:28)
[2024-03-13 07:35] LABS: Basophils # (auto) 0.05 K/uL (0.00-0.20); Basophils % (auto) 0.8 %; Eosinophils % (auto) 7.7 %; Hematocrit (blood only) 38.7 % (42.0-52.0); Hemoglobin 13.3 g/dl (14.0-18.0); Immature Granulocytes % (auto) 1.5 %; Lymphocytes # (auto) 1.28 K/uL (1.20-3.40); Lymphocytes % (auto) 19.8 %; Mean Corpuscular Hemoglobin 27.6 pg (25.0-34.0); Mean Corpuscular Hgb Conc 34.4 g/dL (32.0-36.0); Mean Corpuscular Volume 80.3 fL (80.0-100.0); Mean Platelet Volume 9.8 fL (9.4-12.4); Monocytes # (auto) 1.38 K/uL (0.11-0.59); Monocytes % (auto) 21.4 %; Neutrophils # (auto) 3.15 K/uL (1.40-6.50); Neutrophils % (auto) 48.8 %; Platelet Count 198 K/uL (130-400); RDW Standard Deviation 37.1 fL (36.4-46.3); Red Blood Count 4.82 M/uL (4.70-6.10); White Blood Count 6.46 K/ul (4.8-10.8)
[2024-03-13 07:40] LABS: Calcium 8.5 mg/dl (8.6-10.3); Creatinine Clr Calc Pharmacy 128.9 ml/min; Est GFR (African American) 109.4 ml/min; Est GFR (Non-African American) 94.4 ml/min; Magnesium 2.2 mg/dl (1.7-2.4); Potassium 3.7 mmol/L (3.5-5.1)
[2024-03-13] MEDS: predniSONE 20 MG TAB PO SCH (08:13)
[2024-03-13] MEDS: AZITHROMYCIN 250 MG in DEXTROSE 5% 250 ML IV SCH (08:14)
--- NOTE | 2024-03-13 11:49 | Pulmonology Progress Note ---
Date of Service March 13, 2024 Assessment & Plan (1) Acute viral bronchiolitis: Plan: Patient with acute viral bronchiolitis likely related to enterovirus. Possible superimposed bacterial infection. Group A strep noted on respiratory viral panel. Procalcitonin was negative. Recommend completing a 5-day course of azithromycin. No role for further gram-negative or gram-positive coverage with additional antibiotics. Recommend additional 5 days of p.o. prednisone. Please send patient home with ICS/LABA inhaler such as Symbicort. Discussed with hospitalist. May benefit from outpatient PFTs. Noted significant peripheral eosinophilia on admission of 1740. Possible Th2 mediated asthma. RAST panel and IgE level pending. Will follow-up on these values as an outpatient. Happy to follow the patient in the clinic. (2) Acute hypoxic respiratory failure: Plan: Resolved. (3) Current every day vaping: Plan: Patient notes he quit vaping about 7 days ago. He also has a 10-year history of tobacco abuse with cigarette smoking. Encouraged complete cessation of vaping and cigarette smoking and congratulated him on quitting vaping. (4) Peripheral eosinophilia: Plan: Possibly Th2 mediated asthma as noted above. Will need outpatient workup with PFTs. RAST and IgE panel ordered this admission. Please send home with ICS/LABA inhaler. (5) Abnormal CT scan, chest: Plan: Patient with hilar and mediastinal adenopathy likely reactive to viral infection. Also bronchial wall thickening and secretions noted in the airways. Recommend repeat CT chest in 3-4 months to ensure resolution. Plan Stable for discharge home from a pulmonary perspective. Discussed with hospitalist service. Thank you for the consult. Please call with questions. Admission and Anticipated Discharge Date Admission Date: March 11, 2024 Subjective Shortness of breath significantly improved. Cough a little more productive today. Still notes some chest tightness but improving. Able to ambulate around the room and shower today. Review of Systems Review of Systems: All systems reviewed & are unremarkable except as noted in HPI & below Physical Exam Physical Exam: Constitutional: Patient appears to be of their stated age. Patient appears disheveled. Coughing frequently Eyes: Pupils are equal round and reactive to light. Conjunctivae are normal. Anicteric sclera. Ears nose, mouth and throat: No perioral cyanosis. Neck: Trachea is midline. Visual inspection is normal. Respiratory: Minimal wheeze. No tachypnea. No increased work of breathing. Cardiovascular: Regular rate and rhythm. No murmurs. No edema. Gastrointestinal: Normal bowel sounds, soft, nontender and nondistended. No hepatosplenomegaly noted. Musculoskeletal: No cyanosis. Patient is able to move all extremities. Strength is 5 out of 5 in the upper and lower extremities. Skin: No rashes, warm dry and intact. Neurologic: No obvious focal neurological deficits seen. Psychiatric: Alert and oriented x3 with a euthymic affect. Results & Data Results & Data Vital Signs (Past 12 Hours) Vital Signs Temp Pulse Pulse Pulse Resp BP Pulse Ox 03/13/24 08:25 03/13/24 07:50 36.9 C 87 16 128/72 95 03/13/24 07:01 81 18 93 03/13/24 07:00 76 03/13/24 03:30 36.8 C 102 H 18 141/64 H 95 O2 Del Method 03/13/24 08:25 Room Air 03/13/24 07:50 Room Air 03/13/24 07:01 Room Air 03/13/24 07:00 03/13/24 03:30 Room Air PG Care Time/CCT Total # of Minutes Spent Total Time Spent with Patient: Total time spent is greater than 50% in coordination of care (as documented) at patient's floor/unit and/or counseling patient: Coding Level of Care Code 99549 SUB INP/OBS CARE 2/35MIN Diagnoses Acute viral bronchiolitis J21.8; B97.89 Acute hypoxic respiratory failure J96.01 Current every day vaping Z72.89 Peripheral eosinophilia D72.[address] scan, chest R93.89
--- NOTE | 2024-03-13 13:32 | Discharge Summary ---
Discharge Summary Date of Service March 13, 2024 Principal Dx & Hospital Course #1 = Principal Diagnosis (1) Acute hypoxic respiratory failure: (2) Strep pharyngitis: (3) Enterovirus infection: (4) Hypokalemia: (5) Esophagitis: Plan Pt is a 28yoM with PMHx significant for past tobacco use admitted with acute hypoxic respiratory failure. 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 -Unasyn switched to ceftriaxone and azithromycin. Discharged with azithromycin, complete 5 day course. Per pulmonology, "No role for further gram- negative or gram-positive coverage with additional antibiotics". Azithromycin alternative agent for strep treatment as well. -IV methylprednisone switched to prednisone 40 mg daily. Discharge with 5 more days of prednisone treatment. -Discontinue Breo and Incruse. Discharge with Symbicort inhaler -start nebulized budesonide and nebulized formoterol -hypertonic saline, flutter valve and incentive spirometry to promote mucociliary clearance -May benefit from outpatient PFTs, significant peripheral eosinophilia on admission of 1740, possible Th2 mediated asthma, RAST panel and IgE levels pending on discharge. Pt to follow up with pulmonology after discharge. -Encourage complete cessation of vaping and cigarette smoking -Patient with hilar and mediastinal adenopathy likely reactive to viral infection. Also bronchial wall thickening and secretions noted in the airways. -Recommend repeat CT chest in 3-4 months to ensure resolution. Please ensure followup with Pulmonology after discharge. Hypokalemia K of 3.3 Repleted as needed Esophagitis Suggested on CTA chest Started on daily ppi, discharged with pantoprazole 40mg daily PCP followup Notes For Next Care Provider Recommend repeat CT chest in 3-4 months to ensure resolution. Medication Changes From Visit Per Pulmonology: Symbicort inhaler for daily use Azithromycin 250mg to complete course Prednisone 40mg daily for 5 more days Admission HPI Per Admitting Provider Pt is a 28yoM with PMHx significant for past tobacco use admitted with acute hypoxic respiratory failure. States that he has been coughing for the past week, coughing fits that keep him up at night. No noted fevers. has been urging him to take OTC meds to help. Notes he took theraflu probably once during this time. Coughing progressed and came in today to be evaluated. Was evaluated in the ED where it was noted that he had a strep and viral infection and discharged home. However, he notes he went home, took the prescribed meds and laid down. States at that point felt like something was on his chest and he had significant difficulty breathing. EMS was called and it was noted that he was hypoxic in the 80s. He was placed on oxygen requiring 5L. He states that he smoked tobacco for about 10 years, 1ppd before quitting about a year ago. 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 Denies vaping Hx or smoking anything other than tobacco. Admission Exam Per Admitting Provider General: Alert, oriented. some mild distress Skin: No noted rashes or bruises Psych: Appropriate mood and affect Neuro: No gross deficits HEENT: NC/AT Chest: Nontender to palpation. CV: RRR Resp: Breath sounds with wheezing bilaterally Abdomen: Soft, nontender, nondistended Extremities: No edema in lower extremities bilaterally. Discharge Exam General: Alert, oriented. Skin: No noted rashes or bruises Psych: Appropriate mood and affect Neuro: No gross deficits HEENT: NC/AT Chest: Nontender to palpation. CV: RRR Resp: Breath sounds without wheezing bilaterally, some mild coarsneness Abdomen: Soft, nontender, nondistended Extremities: No edema in lower extremities bilaterally. Updated Medication List Medication Instructions Recorded Confirmed Type benzonatate 100 mg capsule 100 mg PO TID PRN cough #30 caps 03/11/24 03/11/24 Rx azithromycin 250 mg tablet 250 mg PO DAILY #4 tabs 03/13/24 Rx budesonide-formoterol HFA 160 1 inh inhalation BID #10.2 grams 03/13/24 Rx mcg-4.5 mcg/actuation aerosol inhaler (Symbicort) pantoprazole 40 mg tablet,delayed 40 mg PO DAILY #30 tabs 03/13/24 Rx release prednisone 20 mg tablet 40 mg (2 x 20 mg) PO DAILY #10 tabs 03/13/24 Rx Hospital Stay Data Consultations 03/11/24 16:22 ED Decision to Admit Stat 03/11/24 21:27 Consult Pulmonology Routine Diagnostic Imagining Performed 03/11/24 15:41 CT angio chest PE protocol Stat Chest CTA 03/11/24 15:41 CT ANGIOGRAPHY OF THE CHEST, PULMONARY EMBOLUS PROTOCOL CLINICAL HISTORY: Shortness of breath and cough. COMPARISON STUDY: Chest radiograph performed earlier today. TECHNIQUE: Following IV administration of 118 mL of Optiray, helical axial images of the chest were obtained utilizing the pulmonary embolus protocol. Maximal intensity projections and sagittal and coronal reformats were viewed on an independent 3D workstation. IV contrast was administered without complication. Automated exposure control was utilized for the study. A dose lowering technique was utilized adhering to the principles of ALARA. CT DOSE: 846.76 mGy.cm FINDINGS: No pulmonary emboli are identified. There is no thoracic aortic dissection. The size of the heart is normal. There is no pericardial effusion. There are several mildly enlarged mediastinal and bilateral hilar lymph nodes. Index right hilar node on image 107 of 270 measures 1.6 x 1.2 cm. No pneumothorax or pleural effusion is present. No consolidation is identified. Mild distal esophageal wall thickening is noted. There is diffuse bronchial wall thickening with scattered secretions within the airways. Bronchial wall thickening is greatest within the lower lobes. No central obstructing mass is identified. There are no acute fractures within the bony structures. Visualized portions of the upper abdomen are unremarkable. IMPRESSION: 1. No pulmonary emboli identified. 2. Diffuse bronchial wall thickening with scattered airway secretions. The findings suggest an infectious process, likely viral. No consolidation. 3. Mild distal esophageal wall thickening. This may be due to underdistention however esophagitis could appear similar. 4. Mildly enlarged mediastinal and bilateral hilar lymph nodes which are likely reactive. ACT 112: Negative or not required by law. Electronically signed by: Malcolm Oliveros M.D. 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 They recommend discharge home with a daily inhaler Symbicort, and to finish a 5 day course of antibiotics with azithromycin. The also recommend an additional 5 days of prednisone. Please keep followup with Pulmonology after discharge for further testing and work-up. Your chest imaging also noted the possibility of esophagitis. We prescribed you a medication called pantoprazole to help with that. However you will need followup with your primary care provider to further evaluate. Please keep close follow up with your primary care provider and pulmonology after discharge. Please do not hesitate to come back to the emergency room if your symptoms worsen or return. It was a pleasure taking care of you while you were here. Total Time Total Time Spent Total Time Spent (In Minutes): 75
[2024-03-14 14:27] LABS: Alternaria Class 0; Alternaria IgE <0.10 kU/L; Ash (White) Class 0; Ash (White) IgE <0.10 kU/L; Asperg Fumig Class 0; Asperg Fumig IgE <0.10 kU/L; Bermuda Grass Class 0/1; Bermuda Grass IgE 0.12 kU/L; Birch Class 0; Birch IgE <0.10 kU/L; Cat Dander Class 2; Cat Dander IgE 1.43 kU/L; Cladosporium IgE <0.10 kU/L; Cladosporium her Class 0; Cockroach Allergen Class 0/1; Cottonwood Class 0/1; Cottonwood IgE 0.12 kU/L; D. farinae Class 5; D. pteronyssinus Class 6; D. pteronyssinus IgE >100 kU/L; Dog Dander Class 1; Dog Dander IgE 0.42 kU/L; Elm Class 1; Elm IgE 0.43 kU/L; Immunoglobulin IgE 876 kU/L (<OR=114); Maple (Box Elder) IgE 0.23 kU/L; Maple Class 0/1; Mountain Cedar Class 0/1; Mountain Cedar IgE 0.16 kU/L; Mouse Urine Protein Class 0; Mouse Urine Protein IgE <0.10 kU/L; Mugwort (W6) IgE 0.41 kU/L; Mugwort Class 1; Oak-White Class 0; Oak-White IgE <0.10 kU/L; Penic Notatum Class 0; Penic Notatum IgE <0.10 kU/L; Rough Pigweed Class 1; Rough Pigweed IgE 0.38 kU/L; Sheep Sorrel Class 0; Sheep Sorrel IgE <0.10 kU/L; Short Ragweed Class 0/1; Short Ragweed IgE 0.17 kU/L; Sycamore Class 0/1; Sycamore IgE 0.22 kU/L; Timothy Class 0/1; Timothy IgE 0.11 kU/L; Walnut Tree Class 0/1; Walnut Tree IgE 0.14 kU/L; White Mulberry Class 0; White Mulberry IgE <0.10 kU/L
[2024-03-17 08:09] LABS: Cat rFel d 1 (e94) Ab IgE 2.07 kU/L (<0.10); Cat rFel d 7 (e231) Ab IgE <0.10 kU/L (<0.10); Dog rCan f 1 Ab IgE <0.10 kU/L (<0.10); Dog rCan f 2 Ab IgE <0.10 kU/L (<0.10); Dog rCan f 4 Ab IgE <0.10 kU/L (<0.10); Dog rCan f 5 Ab IgE <0.10 kU/L (<0.10); Dog rCan f 6 Ab IgE <0.10 kU/L (<0.10)
== END 2024-03-13 14:24 | disposition home or self-care (01) | DRG 189 ==
LOC: ED 15:20 → 2W 18:08